=== PATIENT | female | born 2000 | race African-American/Black ===

== ENCOUNTER 2022-09-23 23:41 | Emergency (ER) | payer BC ==
[2022-09-24 01:34] LABS: Bilirubin Neg (Negative); Blood, Urine 25 (Negative); Clarity Slightly Cloudy (Clear); Glucose, Urine (Dipstick) Normal (Negative); Ketone, Urine 15 mg/dL (Negative); Leukocyte 25 (Negative); Nitrite Negative (Negative); Protein, Urine (Dipstick) Negative (Neg-Trace); Specific Gravity, Urine 1.015 (1.005-1.030); pH, Urine 6.5 (5.0-9.0)
[2022-09-24] MEDS ORDERED: Ketorolac Tromethamine 30 MG/ML VIAL ONE (01:34)
[2022-09-24] MEDS ORDERED: Cyclobenzaprine 10 MG TAB ONE (01:35)
[2022-09-24 01:37] LABS: Pregnancy Test - Urine (BHCG) Negative (Negative); Pregu Control Background? CLEAR/WHITE (CLR/WHITE); Pregu Control Bar Appear? YES (CONTROL BAR); Specific Gravity 1.015 (1.002-1.036)
[2022-09-24 01:55] LABS: Bacteria/HPF 1+ HPF (None Seen); Mucous/LPF 1+ LPF (<2+); RBC/HPF 0-3 HPF (0-3); Squamous Epithelial 0-3 HPF (0-3); WBC/HPF 0-3 HPF (0-3)
[2022-09-24] MEDS ORDERED: Cephalexin 250 MG CAP ONE (02:09)
== END 2022-09-24 02:13 | disposition home or self-care (01) ==
LOC: CSHERS 23:41
DX: S33.5XXA Sprain of ligaments of lumbar spine, initial encounter (principal); N30.00 Acute cystitis without hematuria; X58.XXXA Exposure to other specified factors, initial encounter
CPT/HCPCS: 81003; 81015; 81025; 87086; 96372; 99283; J1885